=== PATIENT | female | born 1955 | race Caucasian/White ===

== ENCOUNTER → 2024-09-24 12:59 | Outpatient (CLI) | payer OTHER, SELFPAY ==
[2024-09-24 13:56] LABS: COVID-19 CEPHEID 4-PLEX PCR Negative (Negative); Influenza A - CEPHEID Flu A NEGATIVE (NEGATIVE); Influenza B - CEPHEID Flu B NEGATIVE (NEGATIVE); Respiratory Syncytial Virus Negative (Negative)
== END ==
LOC: LAB 13:00
PROVIDERS: Visit Provider Chiropractor
DX: R05.1 Acute cough (principal)
CPT/HCPCS: 0241U

== ENCOUNTER → 2024-12-14 12:55 | Outpatient (CLI) | payer OTHER, SELFPAY ==
--- NOTE | 2024-12-14 12:56 | DI.RAD.S_ITS ---
PROCEDURE: XR DEXA AXIAL SKELETON INDICATIONS: Hx of Osteopenia COMPARISON: None. FINDINGS: Lumbar Spine: Bone mineral density 0.782 g/cm2, T score -2.4. Left Femoral Neck: Bone mineral density 0.630 g/cm2, T score -2.0. Left Hip: Bone mineral density 0.819 g/cm2, T score -1.0. Fracture Risk Calculation (when applicable): 10-year fracture risk of a major osteoporotic fracture of 10% (16% with prior fracture) and of a hip fracture 2.2% (3.3% with prior fracture). (T score greater or equal to -1.0 to: NORMAL) (T score from -1.1 to -2.4: OSTEOPENIA) (T score less than or equal to -2.5: OSTEOPOROSIS) IMPRESSION: Osteopenia Follow-up guidelines as follows: Osteoporosis: Consider a repeat DEXA and Vertebral Fracture Assessment (VFA) exam in 2 years or sooner if medically necessary, to reassess this patient's status. Osteopenia: Consider a repeat DEXA in 2-3 years to reassess this patient's status, or if there is a new clinical indication. Normal: Consider a repeat DEXA in 5 years or sooner, or if there is a new clinical indication. All treatment decisions require clinical judgment and consideration of individual patient factors, including patient preferences, comorbidities, previous drug use, risk factors not captured in the FRAX model (e.g., frailty, falls, vitamin D deficiency, increased bone turnover, interval significant decline in bone density ) and possible under- or over-estimation of fracture risk by FRAX. In addition, the NOF Guide recommends that FDA-approved medical therapies be considered in postmenopausal women and men age >= 50 years with a: * Hip or vertebral (clinical or morphometric) fracture * T-score of <=-2.5 at the spine or hip * Ten-year fracture probability by FRAX of >= 3% for hip fracture or >=20% for major osteoporotic fracture. Approved by: Sejal Zhou M.D.,Ph.D. on 12/14/2024 at 23:45
== END ==
LOC: RAD 12:56
PROVIDERS: PCP Student in an Organized Health Care Education/Training Program; Referring Provider Student in an Organized Health Care Education/Training Program; Visit Provider Student in an Organized Health Care Education/Training Program
DX: M85.89 Other specified disorders of bone density and structure, multiple sites (principal)
CPT/HCPCS: 77080

== ENCOUNTER 2025-03-23 10:45 | Outpatient (RCR) | payer OTHER, SELFPAY ==
--- NOTE | 2025-02-09 16:13 | OT.OPPOC ---
Physical, Occupational & Speech Therapy At [facility] Antonia Finney [id number] 1955 Visit Care Team Role Provider Type Vero Luevano MD Family Provider Physician Primary Care Provider Address: [facility] [place], [address] Salbador Byrnes MD Attending Provider Physician Referring Provider Address: [address] [place] [address], [id number] Occupational Therapy Plan of Care OT Outpatient Adult Evaluation Start: 02/09/25 14:45 Freq: Status: Active Protocol: Document 02/09/25 14:45 (Rec: 02/09/25 14:48 [id number]) General Information - Adult Visit Information Visit Number 1 of 12 Plan of Care Dates 02/09-05/04/25 Insurance no pre-auth initial eval,CPT [id number] ONLY at Information initial eval; Session Time Visit Start Date 02/09/25 Visit Start Time 14:45 Visit Stop Time 15:30 Setting Treatment Setting Outpatient Care Visit Type Note Type Initial Evaluation Referral Referring Physician Dr Salbador Byrnes Reason for Referral sprain of L 2nd MCP Identification Identification Yes Confirmed Identification EMR Confirmed By Social Information Social History It has improved but, only slightly and this happened in August! Patient Questionnaires Quick Dash- Upper Extremity Quick Dash UE Score 15.9 Quick Dash UE 1 to 19% Impaired (Score 1-19) Impairment Goals Objective Measurements Objective AROM of bilateral wrist/hands WFL Measurements Planning Technician strength: R: Avg 56.7 lb (50/60 /60) L: Avg 38.3lb (35 /40 /40) 3-Jaw Gilbert Pinch: R: Average 13 lbs () ; L: 9.7 lbs (01/20/10) Lateral Pinch: R: 12.2 lbs (.5 /) L: 10.3 lbs (02/18.5/11.5) Treatment Treatment patient was seen today for initial occupational therapy evaluation following a left index finger MCP sprain sustained in August 2024. Planning Technician and pinch testing revealed decreased strength in the left hand compared to the right, with average supervisor liquefaction strength of 38.3 lbs on the left versus 56.7 lbs on the right. Pinch strength was also reduced, with left 3-jaw gilbert averaging 9.7 lbs compared to 13 lbs on the right, and lateral pinch averaging 10.3 lbs compared to 12.2 lbs on the right. QuickDASH score was 15.9, reflecting ongoing limitations in hand function. The patient demonstrated full range of motion of the involved digit and denied pain during formal testing but reports persistent dull aching discomfort, particularly after activity. Education was provided regarding the anatomy of the MCP joint, the healing process for ligamentous sprains, the role of occupational therapy in rehabilitation, and the potential benefits of ice baths to support inflammation management. Further reinforcement of education will be needed. Short Term Goals Short Term Goals (Within 4 weeks): 1. The patient will demonstrate independence with a home exercise program including strengthening and inflammation management strategies with correct return demonstration. 2. The patient will improve left hand supervisor liquefaction strength by at least 5 lbs to support increased independence with cooking and light household tasks. 3. The patient will decrease self-reported post- activity pain from dull aching baseline to tolerable or mild levels through activity modification and self- management techniques. 4. The patient will verbalize understanding of joint protection strategies and demonstrate carryover with at least two daily activities. Director Retirement Goals Director Retirement Goals (Within 12 weeks): 1. The patient will improve left hand supervisor liquefaction strength to within 10 lbs of the right hand to support full participation in home management and leisure activities . 2. The patient will report resolution or near- resolution of activity-related aching pain, allowing return to baseline ADL and IADL independence. 3. The patient will demonstrate improved pinch strength to within 1?2 lbs of the right hand to support fine motor tasks such as fastening clothing and food preparation. 4. The patient will independently implement activity modification and inflammation management strategies to sustain joint protection and maintain pain-free function during routine activities. Assessment/Plan Assessment Patient Response Good Rehabilitation Good Potential Impairments ADLs,Functional Activities,Pain,Weakness,Recreational Identified Activities,Meaningful Activities,Swelling Progress Towards Good Progress Goals Treatment Assessment 69-year-old right-hand dominant female referred to occupational therapy by Dr. Salbador Byrnes after sustaining a fall onto her left hand in August 2024, resulting in persistent pain localized to the left index MCP joint. Imaging via MRI on 01/14/25 identified an undersurface tear of the radial collateral ligament with associated volar plate avulsion and moderate joint effusion, confirming moderate ligamentous injury without extensor hawk disruption. Radiographs were unremarkable for fracture or degeneration. The patient currently presents with reduced supervisor liquefaction and pinch strength, activity -related aching pain, and mild limitations in ADL/IADL performance at baseline. She demonstrates full AROM but ongoing inflammation and functional weakness that warrant skilled occupational therapy intervention focused on pain management, strength buddhist, and activity modification to optimize independence. Reviewed with Goals,Progress Being Made,Home Exercise Program Patient Patient Good Understanding Plan Length of treatment 12 (weeks) Plan of Care Start 02/09/25 Date Plan of Care End 05/04/25 Date Treatment Frequency Once a Week Treatment Duration 45 Minutes Therapeutic Contents Adaptive Equipment Education,Client Education, Functional Activities,Home Exercise Program,Joint Protection,Education,Therapeutic Activities,Therapeutic Exercises Modalities As Needed Types of Modalities Ice Massage,Other Additional Types of MHP, paraffin Modalities Patient Instruction Plan of Care,Questions/Concerns Patient Continue with Current Program Recommendations Electronically Signed by: Mary Nicholson OT 02/09/25 1458 If you are in agreement with this Plan of Care, please return a signed and dated copy. I have reviewed this Plan of Care and certify that the skilled therapy services above are required to meet the patient?s needs. Physician Signature Date Printed Name and Credentials Clinical Instructor Signature Printed Name and Credentials
--- NOTE | 2025-02-16 12:27 | OT.OP.TRT ---
Visit Care Team Role Provider Type Vero Luevano MD Family Provider Physician Primary Care Provider Specialty: Family Practice Obstetrics Address: [address] [place], [address] Email: [email or web address] Salbador Byrnes MD Attending Provider Physician Referring Provider Specialty: Orthopedic Surgery Address: [address] [place] [address], [id number] Email: [email or web address] Occupational Therapy Treatment Note OT Outpatient Treatment Note - Adult Start: 02/09/25 14:45 Freq: Status: Active Protocol: Document 02/16/25 10:45 (Rec: 02/12/25 16:55 [id number]) OT Outpatient Adult Treatment Note Session Time Visit Start Date 02/16/25 Visit Start Time 10:45 Visit Stop Time 11:30 Visit Information Visit Number 2 of 12 Plan of Care Dates 02/09-05/04/25 Insurance no pre-auth initial eval,CPT [id number] ONLY at Information initial eval Setting Treatment Setting Outpatient Care Visit Type Note Type Treatment Note - Subjective Identification Type Name Identification Medical Record Reconciled With Observations I tried icing it this past week but I noticed afterward, it would really ache for about 15 min and was quite painful Patient/Caregiver Excellent Compliance with Home Exercise Program - Objective Short Term Goals (Within 4 weeks): 1. The patient will demonstrate independence with a home exercise program including strengthening and inflammation management strategies with correct return demonstration. 2. The patient will improve left hand supervisor type photography strength by at least 5 lbs to support increased independence with cooking and light household tasks. 3. The patient will decrease self-reported post- activity pain from dull aching baseline to tolerable or mild levels through activity modification and self- management techniques. 4. The patient will verbalize understanding of joint protection strategies and demonstrate carryover with at least two daily activities. Curatorial Assistant Goals (Within 12 weeks): 1. The patient will improve left hand supervisor type photography strength to within 10 lbs of the right hand to support full participation in home management and leisure activities . 2. The patient will report resolution or near- resolution of activity-related aching pain, allowing return to baseline ADL and IADL independence. 3. The patient will demonstrate improved pinch strength to within 1?2 lbs of the right hand to support fine motor tasks such as fastening clothing and food preparation. 4. The patient will independently implement activity modification and inflammation management strategies to sustain joint protection and maintain pain-free function during routine activities. - Treatment 1 Descriptor The patient was seen today for continued treatment of her left index MCP sprain. Education and review of her home exercise program were completed, including tendon glides, isometric finger extension, and retrograde massage techniques. The patient required maximal verbal and visual cues for proper technique but demonstrated good return demonstration and verbalized understanding of all instructions. The use of cold therapy was discussed in detail, and it was determined that icing will be avoided due to her history of Raynaud?s disease and prior adverse response to cold. Instead, emphasis was placed on retrograde massage and tendon glides to support circulation and inflammation management. The patient was provided a written handout with clear guidance for her exercises and education regarding the difference between retrograde massage, soft tissue mobilization, and circulatory massage. For simplicity and to minimize potential irritation, her current HEP will focus on tendon glides, isometric finger extension , and retrograde massage until tolerance is confirmed. Activity modification strategies were reviewed, and specific pain-provoking tasks were discussed, including mowing, jar opening, and blow-drying hair. An under- the-counter jar brush clearing laborer was demonstrated as an adaptive option, which the patient expressed eagerness to explore. Overall, the patient demonstrated good engagement, comprehension, and compliance with all education and continues to benefit from skilled OT intervention to restore functional hand use. - Assessment Patient Response to Good Treatment Rehabilitation Good Potential Impairments ADLs,Functional Activities,Pain,Weakness,Recreational Identified Activities,Meaningful Activities,Swelling Progress Towards Good Progress Goals Assessment of Improving Overall Progress Assessment of The patient continues to demonstrate mild functional Improvement limitations related to her left index MCP sprain, characterized by post-activity discomfort and decreased tolerance for gripping and sustained hand use. Given her history of Raynaud?s disease and reported vasospastic response following ice application, thermal modalities have been modified to exclude cold use at this time. Treatment instead emphasizes circulation- based techniques, controlled mobility, and gentle strengthening to address inflammation and maintain joint integrity without provoking vascular symptoms. She demonstrates good comprehension and motivation to participate in her plan of care and will continue to benefit from skilled occupational therapy to further address residual pain, mild weakness, and functional limitations during gripping, jar opening, and self-care tasks such as hair grooming. Ongoing intervention will focus on progressive strengthening, safe inflammation management strategies, and continued education on joint protection and adaptive modifications to restore independence in daily activities. Home Exercise retrograde massage, tendon glides, isometric finger Program extension Reviewed with Goals,Progress Being Made,Home Exercise Program Patient/Caregiver Patient/Caregiver Good Understanding - Plan Therapy Continue with Current Program Recommendations Amount of Therapy 2-3 Months Recommended Frequency of Once a Week Treatment Length of Session 45 Minutes Treatment Emphasis k-tape, review HEP, progress as tolerated Next Session Therapeutic Contents Active Range of Motion,Adaptive Equipment Education, Client Education,Functional Activities,Home Exercise Program,Joint Protection,Education,Self-Care,Stretching /Flexibility Activities,Therapeutic Activities, Therapeutic Exercises,Modalities Modalities As Needed Types of Modalities Ice Massage,Other Additional Types of MHP, paraffin Modalities
--- NOTE | 2025-02-23 12:04 | OT.OP.TRT ---
Visit Care Team Role Provider Type Vero Luevano MD Family Provider Physician Primary Care Provider Specialty: Family Practice Obstetrics Address: [address] [place], [address] Email: [email or web address] Salbador Byrnes MD Attending Provider Physician Referring Provider Specialty: Orthopedic Surgery Address: [address] [place] [address], [address] Email: [email or web address] Occupational Therapy Treatment Note OT Outpatient Treatment Note - Adult Start: 02/09/25 14:45 Freq: Status: Active Protocol: Document 02/23/25 10:45 (Rec: 02/19/25 09:25 [id number]) OT Outpatient Adult Treatment Note Session Time Visit Start Date 02/23/25 Visit Start Time 10:45 Visit Stop Time 11:30 Visit Information Visit Number 3 of 12 Plan of Care Dates 02/09-05/04/25 Insurance no pre-auth initial eval,CPT [id number] ONLY at Information initial eval Setting Treatment Setting Outpatient Care Visit Type Note Type Treatment Note - Subjective Identification Type Name Identification Medical Record Reconciled With Observations I am noticing a lot less achiness this week, especially at night, that has gotten much better! Patient/Caregiver Excellent Compliance with Home Exercise Program - Objective Short Term Goals (Within 4 weeks): 1. The patient will demonstrate independence with a home exercise program including strengthening and inflammation management strategies with correct return demonstration. 2. The patient will improve left hand dice spotter strength by at least 5 lbs to support increased independence with cooking and light household tasks. 3. The patient will decrease self-reported post- activity pain from dull aching baseline to tolerable or mild levels through activity modification and self- management techniques. 4. The patient will verbalize understanding of joint protection strategies and demonstrate carryover with at least two daily activities. Fixed Wing Pilot Goals (Within 12 weeks): 1. The patient will improve left hand dice spotter strength to within 10 lbs of the right hand to support full participation in home management and leisure activities . 2. The patient will report resolution or near- resolution of activity-related aching pain, allowing return to baseline ADL and IADL independence. 3. The patient will demonstrate improved pinch strength to within 1?2 lbs of the right hand to support fine motor tasks such as fastening clothing and food preparation. 4. The patient will independently implement activity modification and inflammation management strategies to sustain joint protection and maintain pain-free function during routine activities. - Exercises 1 Descriptor HEP progressed this date- 1x10 for the following: Tendon glides Isometric finger flexion Isometric finger extension Isometric adduction/abduction Isometric Wrist Neutral Stabilization (gentle co- contraction) The patient was seen today for continued skilled occupational therapy to address residual weakness and stiffness following left index MCP sprain. The session focused on progression of her therapeutic exercise program and review of prior home exercises. She completed 10 repetitions each of gentle isometric flexion, extension, abduction, and adduction exercises for the left index finger with good tolerance and no increase in pain or vascular symptoms. Guided review of tendon glides was completed with emphasis on controlled pacing and full excursion of each movement pattern. The patient reported significant reduction in overall achiness, particularly at night, noting that discomfort is now essentially resolved. She identified the flat-fist portion of her tendon glides as the most challenging, previously limited by slight residual flexion lag of the index finger which she reports has now resolved, allowing full flattening of the digit. Education was provided on the anatomy and biomechanics of the MCP joint, mechanisms of tendon and ligament healing, and flexor-extensor balance during recovery. Her HEP was updated to include the newly introduced isometric exercises with instructions for self- monitoring and appropriate grading of effort based on symptom response. Patient required maximal verbal and visual cues for correct technique but demonstrated excellent carryover, understanding, and motivation to continue home practice. Visual Cues Max Cues Verbal Cues Max Cues - Assessment Patient Response to Good Treatment Rehabilitation Good Potential Impairments ADLs,Functional Activities,Pain,Weakness,Recreational Identified Activities,Meaningful Activities,Swelling Progress Towards Good Progress Goals Assessment of Improving Overall Progress Assessment of The patient is demonstrating notable improvement in Improvement pain resolution and joint mobility since her previous visit, with near-complete resolution of night aching and improved tendon excursion during the flat-fist phase of tendon glides. Progression to multi- directional isometrics was well tolerated without vascular reaction or post-exercise discomfort, indicating improved tissue healing and load tolerance. Continued mild tension with end-range flexion suggests ongoing soft tissue adaptation and intrinsic tightness, which will benefit from gradual mobility and strengthening progression. Education comprehension remains high, and the patient demonstrates excellent adherence to recommendations. She continues to benefit from skilled occupational therapy to advance intrinsic and extrinsic balance, restore fine motor endurance, and reinforce joint protection and circulation strategies appropriate for her history of Raynaud?s disease as she resumes full functional hand use. Home Exercise retrograde massage, tendon glides, isometric finger Program extension/flexion/abduction/adduction/wrist stabilization Reviewed with Goals,Progress Being Made,Home Exercise Program Patient/Caregiver Patient/Caregiver Good Understanding - Plan Therapy Continue with Current Program Recommendations Amount of Therapy 2-3 Months Recommended Frequency of Once a Week Treatment Length of Session 45 Minutes Treatment Emphasis k-tape, review HEP, progress as tolerated Next Session Therapeutic Contents Active Range of Motion,Adaptive Equipment Education, Client Education,Functional Activities,Home Exercise Program,Joint Protection,Education,Self-Care,Stretching /Flexibility Activities,Therapeutic Activities, Therapeutic Exercises,Modalities Modalities As Needed Types of Modalities Ice Massage,Other Additional Types of MHP, paraffin Modalities
--- NOTE | 2025-03-02 12:46 | OT.OPPN ---
Current Diagnoses Contusion of left hand, subsequent encounter (03/02/25) OT Progress Note OT Outpatient Treatment Note - Adult Start: 02/09/25 14:45 Freq: Status: Active Protocol: Document 03/02/25 10:45 (Rec: 02/26/25 14:53 [id number]) OT Outpatient Adult Treatment Note Session Time Visit Start Date 03/02/25 Visit Start Time 10:45 Visit Stop Time 11:30 Visit Information Visit Number 4 of 12 Plan of Care Dates 02/09-05/04/25 Insurance no pre-auth initial eval,CPT [id number] ONLY at Information initial eval Setting Treatment Setting Outpatient Care Visit Type Note Type Progress Note - Subjective Identification Type Name Identification Medical Record Reconciled With Observations I increased the reps yesterday and it did get quite achey after that Patient/Caregiver Excellent Compliance with Home Exercise Program - Objective Short Term Goals (Within 4 weeks): 1. The patient will demonstrate independence with a home exercise program including strengthening and inflammation management strategies with correct return demonstration. [PROGRESSING 03/02/25] 2. The patient will improve left hand makeup sales advisor strength by at least 5 lbs to support increased independence with cooking and light household tasks. [PROGRESSING ] 3. The patient will decrease self-reported post- activity pain from dull aching baseline to tolerable or mild levels through activity modification and self- management techniques. [PROGRESSING 03/02/25] 4. The patient will verbalize understanding of joint protection strategies and demonstrate carryover with at least two daily activities. [MET 03/02/25] Oriental Rug Repairer Goals (Within 12 weeks): 1. The patient will improve left hand makeup sales advisor strength to within 10 lbs of the right hand to support full participation in home management and leisure activities . [PROGRESSING 03/02/25] 2. The patient will report resolution or near- resolution of activity-related aching pain, allowing return to baseline ADL and IADL independence. [ PROGRESSING 03/02/25] 3. The patient will demonstrate improved pinch strength to within 1?2 lbs of the right hand to support fine motor tasks such as fastening clothing and food preparation. [PROGRESSING 03/02/25] 4. The patient will independently implement activity modification and inflammation management strategies to sustain joint protection and maintain pain-free function during routine activities. [[PROGRESSING 03/02] - Exercises 1 Descriptor HEP progressed this date- 1x10 for the following: Tendon glides Isometric finger flexion Isometric finger extension Isometric adduction/abduction Isometric Wrist Neutral Stabilization (gentle co- contraction) Reinforcement was provided regarding proper pacing and movement control. Instruction was given on how to modify her home program through reduction of repetitions or intensity should any soreness or swelling occur. She demonstrated understanding of all concepts with good return demonstration and verbalized confidence in independently managing progression. Visual Cues Min Cues Verbal Cues Min Cues Manual Therapy Manual Therapy The patient was seen today for continued occupational therapy addressing residual deficits following left index MCP sprain. The session began with a tuning fork sequence using a 128 Hz fork applied with light contact in a [id number] pattern across the dorsal hand and index MCP joint. This was used as a preparatory modality to enhance local circulation and sensory awareness prior to exercise, given her history of Raynaud?s disease and the need to avoid thermal modalities. The patient tolerated vibration well, with no vascular color change or discomfort reported. Treatment then incorporated manual retrograde massage and gentle soft tissue mobilization to the dorsal and volar aspects of the MCP joint to promote fluid movement, reduce stiffness, and support tissue pliability. Ongoing patient education was provided throughout, reviewing the purpose of vibration, massage , and graded exercise progression, emphasizing monitoring for any post-session aching or vascular response. - Assessment Patient Response to Good Treatment Rehabilitation Good Potential Impairments ADLs,Functional Activities,Pain,Weakness,Recreational Identified Activities,Meaningful Activities,Swelling Progress Towards Good Progress Goals Assessment of Improving Overall Progress Assessment of The patient demonstrated continued positive progress in Improvement strength, range of motion, and symptom reduction since prior sessions. She tolerated the introduction of the tuning fork sequence well, with no adverse vascular response, indicating safe adaptation to vibratory input as a preparatory modality given her Raynaud?s history. She continues to present with mild soft tissue tightness and residual intrinsic weakness but reports no pain at rest and no nighttime aching. Her ability to complete all isometric exercises without irritation and her improved tendon glide mechanics reflect advancing tissue healing and neuromuscular control. Education comprehension and engagement remain excellent , and the patient demonstrates consistent adherence to her HEP and self-monitoring strategies. She will continue to benefit from skilled OT to advance intrinsic and extrinsic coordination, graded strengthening, and proprioceptive retraining to fully restore functional hand use and maintain vascular comfort during higher-level activity demands. Home Exercise retrograde massage, tendon glides, isometric finger Program extension/flexion/abduction/adduction/wrist stabilization Reviewed with Goals,Progress Being Made,Home Exercise Program Patient/Caregiver Patient/Caregiver Good Understanding - Plan Therapy Continue with Current Program Recommendations Amount of Therapy 2-3 Months Recommended Frequency of Once a Week Treatment Length of Session 45 Minutes Treatment Emphasis k-tape, review HEP, progress as tolerated Next Session Therapeutic Contents Active Range of Motion,Adaptive Equipment Education, Client Education,Functional Activities,Home Exercise Program,Joint Protection,Education,Self-Care,Stretching /Flexibility Activities,Therapeutic Activities, Therapeutic Exercises,Modalities Modalities As Needed Types of Modalities Ice Massage,Other Additional Types of MHP, paraffin Modalities If you are in agreement with this Plan of Care, please return a signed and dated copy. I have reviewed this Plan of Care and certify that the skilled therapy services above are required to meet the patient?s needs. Physician Signature Date Printed Name and Credentials Clinical Instructor Signature Printed Name and Credentials
--- NOTE | 2025-03-16 11:55 | OT.OP.TRT ---
Visit Care Team Role Provider Type Vero Luevano MD Family Provider Physician Primary Care Provider Specialty: Family Practice Obstetrics Address: [address] [place], [address] Email: [email or web address] Byrnes MD Attending Provider Physician Referring Provider Specialty: Orthopedic Surgery Address: [address] [place] [address], [id number] Email: [email or web address] Occupational Therapy Treatment Note OT Outpatient Treatment Note - Adult Start: 02/09/25 14:45 Freq: Status: Active Protocol: Document 03/16/25 10:45 (Rec: 03/12/25 12:55 [id number]) OT Outpatient Adult Treatment Note Session Time Visit Start Date 03/16/25 Visit Start Time 10:45 Visit Stop Time 11:30 Visit Information Visit Number 5 of 12 Plan of Care Dates 02/09-05/04/25 Insurance no pre-auth initial eval,CPT [id number] ONLY at Information initial eval Setting Treatment Setting Outpatient Care Visit Type Note Type Treatment Note - Subjective Identification Type Name Identification Medical Record Reconciled With Observations I am definitely noticing an improvement Patient/Caregiver Excellent Compliance with Home Exercise Program - Objective Short Term Goals (Within 4 weeks): 1. The patient will demonstrate independence with a home exercise program including strengthening and inflammation management strategies with correct return demonstration. [PROGRESSING 03/02/25] 2. The patient will improve left hand food safety coordinator strength by at least 5 lbs to support increased independence with cooking and light household tasks. [PROGRESSING ] 3. The patient will decrease self-reported post- activity pain from dull aching baseline to tolerable or mild levels through activity modification and self- management techniques. [PROGRESSING 03/02/25] 4. The patient will verbalize understanding of joint protection strategies and demonstrate carryover with at least two daily activities. [MET 03/02/25] Regional Training Manager Goals (Within 12 weeks): 1. The patient will improve left hand food safety coordinator strength to within 10 lbs of the right hand to support full participation in home management and leisure activities . [PROGRESSING 03/02/25] 2. The patient will report resolution or near- resolution of activity-related aching pain, allowing return to baseline ADL and IADL independence. [ PROGRESSING 03/02/25] 3. The patient will demonstrate improved pinch strength to within 1?2 lbs of the right hand to support fine motor tasks such as fastening clothing and food preparation. [PROGRESSING 03/02/25] 4. The patient will independently implement activity modification and inflammation management strategies to sustain joint protection and maintain pain-free function during routine activities. [[PROGRESSING 03/02] - Exercises 1 Descriptor 2x10 for the following: -Yellow flexbar: wrist flex/ext, ulnar/radial deviation -Tripod pinch along pink foam block -clothes pins (clipping/unclipping) -in hand manipulation of large fake coins, as well as a mix of pennies/dimes/jake/quarters - Assessment Patient Response to Good Treatment Rehabilitation Good Potential Impairments ADLs,Functional Activities,Pain,Weakness,Recreational Identified Activities,Meaningful Activities,Swelling Progress Towards Good Progress Goals Assessment of Improving Overall Progress Assessment of The patient continues to demonstrate excellent progress Improvement in functional recovery of the left hand following index MCP sprain. She tolerated today?s progression well, including dynamic strengthening, fine motor coordination activities, and gentle resistive work using a yellow FlexBar for wrist flexion/extension and radial/ulnar deviation. No increase in pain or vascular symptoms was observed throughout the session. She reports significant overall improvement in pain during daily activities, with only mild pulling discomfort noted at the radial aspect of the index MCP and base of the wrist during tabletop tendon glide positioning and when opening tight containers. Coordination challenges were observed during in-hand manipulation of multi- sized beads, with occasional dropping but steady improvement noted with repetition and minimal cueing required. Overall, the patient is demonstrating meaningful gains in strength, dexterity, and tolerance for functional activity with decreasing pain frequency and intensity. Residual mild tightness and coordination deficits remain, consistent with ongoing soft tissue remodeling and fine motor retraining needs. She continues to exhibit excellent engagement, comprehension of her home program, and motivation toward full recovery. The patient will continue to benefit from skilled occupational therapy to further advance intrinsic strength, neuromuscular control, and functional endurance to ensure safe return to unrestricted use of the left hand during all ADL and IADL tasks. Home Exercise retrograde massage, tendon glides, isometric finger Program extension/flexion/abduction/adduction/wrist stabilization Reviewed with Goals,Progress Being Made,Home Exercise Program Patient/Caregiver Patient/Caregiver Good Understanding - Plan Therapy Continue with Current Program Recommendations Amount of Therapy 2-3 Months Recommended Frequency of Once a Week Treatment Length of Session 45 Minutes Treatment Emphasis k-tape, review HEP, progress as tolerated Next Session Therapeutic Contents Active Range of Motion,Adaptive Equipment Education, Client Education,Functional Activities,Home Exercise Program,Joint Protection,Education,Self-Care,Stretching /Flexibility Activities,Therapeutic Activities, Therapeutic Exercises,Modalities Modalities As Needed Types of Modalities Ice Massage,Other Additional Types of MHP, paraffin Modalities
--- NOTE | 2025-03-23 15:13 | OT.OP.DC ---
Visit Care Team Role Provider Type Vero Luevano MD Family Provider Physician Primary Care Provider Address: [address] [place] [address], [id number] Email: [email or web address] Salbador Byrnes MD Attending Provider Physician Referring Provider Address: [address] [place] [address], [id number] Email: [email or web address] Outpatient OT Outpatient Adult Evaluation Start: 02/09/25 14:45 Freq: Status: Active Protocol: Document 02/09/25 14:45 (Rec: 02/09/25 14:48 [id number]) General Information - Adult Visit Information Visit Number 1 of 12 Plan of Care Dates 02/09-05/04/25 Insurance no pre-auth initial eval,CPT [id number] ONLY at Information initial eval; Session Time Visit Start Date 02/09/25 Visit Start Time 14:45 Visit Stop Time 15:30 Setting Treatment Setting Outpatient Care Visit Type Note Type Initial Evaluation Referral Referring Physician Dr Salbador Byrnes Reason for Referral sprain of L 2nd MCP Identification Identification Yes Confirmed Identification EMR Confirmed By Social Information Social History It has improved but, only slightly and this happened in August! Patient Questionnaires Quick Dash- Upper Extremity Quick Dash UE Score 15.9 Quick Dash UE 1 to 19% Impaired (Score 1-19) Impairment Goals Objective Measurements Objective AROM of bilateral wrist/hands WFL Measurements Auditor Supervisor strength: R: Avg 56.7 lb (50/60 /60) L: Avg 38.3lb (35 /40 /40) 3-Jaw Gilbert Pinch: R: Average 13 lbs () ; L: 9.7 lbs (01/20/10) Lateral Pinch: R: 12.2 lbs (.5 /) L: 10.3 lbs (02/18.5/11.5) Treatment Treatment patient was seen today for initial occupational therapy evaluation following a left index finger MCP sprain sustained in August 2024. Auditor Supervisor and pinch testing revealed decreased strength in the left hand compared to the right, with average demonstrator electric gas appliances strength of 38.3 lbs on the left versus 56.7 lbs on the right. Pinch strength was also reduced, with left 3-jaw gilbert averaging 9.7 lbs compared to 13 lbs on the right, and lateral pinch averaging 10.3 lbs compared to 12.2 lbs on the right. QuickDASH score was 15.9, reflecting ongoing limitations in hand function. The patient demonstrated full range of motion of the involved digit and denied pain during formal testing but reports persistent dull aching discomfort, particularly after activity. Education was provided regarding the anatomy of the MCP joint, the healing process for ligamentous sprains, the role of occupational therapy in rehabilitation, and the potential benefits of ice baths to support inflammation management. Further reinforcement of education will be needed. Short Term Goals Short Term Goals (Within 4 weeks): 1. The patient will demonstrate independence with a home exercise program including strengthening and inflammation management strategies with correct return demonstration. 2. The patient will improve left hand demonstrator electric gas appliances strength by at least 5 lbs to support increased independence with cooking and light household tasks. 3. The patient will decrease self-reported post- activity pain from dull aching baseline to tolerable or mild levels through activity modification and self- management techniques. 4. The patient will verbalize understanding of joint protection strategies and demonstrate carryover with at least two daily activities. Fdc Goals Fdc Goals (Within 12 weeks): 1. The patient will improve left hand demonstrator electric gas appliances strength to within 10 lbs of the right hand to support full participation in home management and leisure activities . 2. The patient will report resolution or near- resolution of activity-related aching pain, allowing return to baseline ADL and IADL independence. 3. The patient will demonstrate improved pinch strength to within 1?2 lbs of the right hand to support fine motor tasks such as fastening clothing and food preparation. 4. The patient will independently implement activity modification and inflammation management strategies to sustain joint protection and maintain pain-free function during routine activities. Assessment/Plan Assessment Patient Response Good Rehabilitation Good Potential Impairments ADLs,Functional Activities,Pain,Weakness,Recreational Identified Activities,Meaningful Activities,Swelling Progress Towards Good Progress Goals Treatment Assessment 69-year-old right-hand dominant female referred to occupational therapy by Dr. Salbador Byrnes after sustaining a fall onto her left hand in August 2024, resulting in persistent pain localized to the left index MCP joint. Imaging via MRI on 01/14/25 identified an undersurface tear of the radial collateral ligament with associated volar plate avulsion and moderate joint effusion, confirming moderate ligamentous injury without extensor hawk disruption. Radiographs were unremarkable for fracture or degeneration. The patient currently presents with reduced demonstrator electric gas appliances and pinch strength, activity -related aching pain, and mild limitations in ADL/IADL performance at baseline. She demonstrates full AROM but ongoing inflammation and functional weakness that warrant skilled occupational therapy intervention focused on pain management, strength worship, and activity modification to optimize independence. Reviewed with Goals,Progress Being Made,Home Exercise Program Patient Patient Good Understanding Plan Length of treatment 12 (weeks) Plan of Care Start 02/09/25 Date Plan of Care End 05/04/25 Date Treatment Frequency Once a Week Treatment Duration 45 Minutes Therapeutic Contents Adaptive Equipment Education,Client Education, Functional Activities,Home Exercise Program,Joint Protection,Education,Therapeutic Activities,Therapeutic Exercises Modalities As Needed Types of Modalities Ice Massage,Other Additional Types of MHP, paraffin Modalities Patient Instruction Plan of Care,Questions/Concerns Patient Continue with Current Program Recommendations Functional Wrist/Hand Scan Hand Side Sensory Assessment Sensory Profile2 OT Outpatient Treatment Note - Adult Start: 02/09/25 14:45 Freq: Status: Active Protocol: Document 03/23/25 10:45 (Rec: 03/19/25 14:17 [id number]) OT Outpatient Adult Treatment Note Session Time Visit Start Date 03/23/25 Visit Start Time 10:45 Visit Stop Time 11:40 Visit Information Visit Number 6 of 12 Plan of Care Dates 02/09-05/04/25 Insurance no pre-auth initial eval,CPT [id number] ONLY at Information initial eval Setting Treatment Setting Outpatient Care Visit Type Note Type Discharge Summary - Subjective Identification Type Name Identification Medical Record Reconciled With Observations It is so much better, I can't believe it Patient/Caregiver Excellent Compliance with Home Exercise Program - Objective Objective QuickDASH: 5 Measurements Auditor Supervisor: (R: 55/60/60 Av.3lb); (L: 50/50/50 Avlb ) [ON EVAL 02/09: R: Avg 56.7; L: Avg 38.3] Tripod Pinch: (R: 03/24./ Average: 11.8lb); (L: 03/22 Average:10.3 ) [ON EVAL 02/09 Averages: R 13lb; L: 9.7lb] Lateral Pinch: (R: 04/25/ Average: 13.3 lb); (L: .5/ Average: 12.5lb ) [ON EVAL 02/09: R: 12.2; L: 10 .3] Short Term Goals (Within 4 weeks): 1. The patient will demonstrate independence with a home exercise program including strengthening and inflammation management strategies with correct return demonstration. [MET 03/23/25] 2. The patient will improve left hand demonstrator electric gas appliances strength by at least 5 lbs to support increased independence with cooking and light household tasks. [MET 03/23/25] 3. The patient will decrease self-reported post- activity pain from dull aching baseline to tolerable or mild levels through activity modification and self- management techniques. [MET 03/23/25] 4. The patient will verbalize understanding of joint protection strategies and demonstrate carryover with at least two daily activities. [MET 03/02/25] Fdc Goals (Within 12 weeks): 1. The patient will improve left hand demonstrator electric gas appliances strength to within 10 lbs of the right hand to support full participation in home management and leisure activities . [MET 03/23/25] 2. The patient will report resolution or near- resolution of activity-related aching pain, allowing return to baseline ADL and IADL independence. [MET 04/06] 3. The patient will demonstrate improved pinch strength to within 1?2 lbs of the right hand to support fine motor tasks such as fastening clothing and food preparation. [PROGRESSING 03/23/25] 4. The patient will independently implement activity modification and inflammation management strategies to sustain joint protection and maintain pain-free function during routine activities. [MET 03/23/25] - Treatment 1 Descriptor The patient was seen today for final reassessment and discharge following completion of her occupational therapy plan of care for left index MCP sprain. Re- testing revealed notable strength improvements with demonstrator electric gas appliances and pinch measurements as follows: Auditor Supervisor strength averaged 58.3 lb on the right and 50 lb on the left ( previously 56.7 lb and 38.3 lb, respectively); three- jaw gilbert pinch averaged 11.8 lb right and 10.3 lb left (previously 13 lb and 9.7 lb); and lateral pinch averaged 13.3 lb right and 12.5 lb left (previously 12. 2 lb and 10.3 lb). QuickDASH score improved from 15.9 at evaluation to 5 at discharge, indicating significant functional recovery. Education was provided on long- term joint protection, safe strengthening progression, and self-monitoring for any recurrence of symptoms. The patient was advised to continue her established home exercise program and utilize task modification strategies for any activities that involve heavy twisting or gripping. She verbalized good understanding of all discharge recommendations and demonstrated full independence with her home program. - Assessment Patient Response to Good Treatment Rehabilitation Good Potential Impairments ADLs,Functional Activities,Pain,Weakness,Recreational Identified Activities,Meaningful Activities,Swelling Progress Towards Good Progress Goals Assessment of Improving Overall Progress Assessment of 69-year-old right-hand dominant female was referred to Improvement occupational therapy following a left index MCP sprain sustained in August 2024 after a fall onto her hand. At evaluation, she reported ongoing dull aching pain after activity and difficulty performing daily tasks such as gripping, lifting, and opening containers. Imaging revealed a radial collateral ligament tear with volar plate avulsion and joint effusion. On initial presentation, she demonstrated full range of motion but decreased left demonstrator electric gas appliances and pinch strength and increased post-activity discomfort. Treatment interventions included education on anatomy and healing processes, tendon glide retraining, progressive isometric and dynamic strengthening, retrograde massage for inflammation management, proprioceptive and coordination training, and compensatory strategy instruction for Raynaud?s-related vascular sensitivity. A 128 Hz tuning fork sequence was used during early sessions to support circulation and proprioceptive awareness in lieu of thermal modalities. Over the course of therapy, the patient demonstrated excellent adherence to her home exercise program, steady improvement in strength and functional use, and complete resolution of nighttime aching. She reports only minimal tenderness with high-torque twisting tasks but otherwise performs all ADL and IADL activities without limitation. Objective testing confirms worship of near-symmetric demonstrator electric gas appliances and pinch strength and significant functional gains per QuickDASH improvement. Given that all short- and long-term goals have been met, the patient has achieved maximum therapeutic benefit at this time and is appropriate for discharge from skilled occupational therapy. She verbalized confidence in her ability to self-manage ongoing care and understands she may request a new referral in the future should symptoms worsen or reoccur. Home Exercise retrograde massage, tendon glides, isometric finger Program extension/flexion/abduction/adduction/wrist stabilization Reviewed with Goals,Progress Being Made,Home Exercise Program Patient/Caregiver Patient/Caregiver Good Understanding - Plan Therapy Discharge to Home Exercise Program,Discharge from Recommendations Occupational Therapy Amount of Therapy No Further Therapy Recommended Frequency of No Further Therapy Treatment Therapeutic Contents Active Range of Motion,Adaptive Equipment Education, Client Education,Functional Activities,Home Exercise Program,Joint Protection,Education,Self-Care,Stretching /Flexibility Activities,Therapeutic Activities, Therapeutic Exercises,Modalities Modalities As Needed Types of Modalities Ice Massage,Other Additional Types of MHP, paraffin Modalities
== END 2025-03-25 11:26 | disposition home or self-care (01) ==
LOC: OT 10:45
PROVIDERS: Family Provider Student in an Organized Health Care Education/Training Program; PCP Student in an Organized Health Care Education/Training Program; Referring Provider Orthopaedic Surgery; Visit Provider Orthopaedic Surgery
DX: S60.222D Contusion of left hand, subsequent encounter (principal)
CPT/HCPCS: 97110; 97140; 97165; 97530